=== PATIENT | female | born 1970 | race Asian ===

== ENCOUNTER 2020-10-16 15:37 | Emergency (ER) | payer OTHER ==
[~2020-10-16] VITALS: Ht 160 cm; Wt 77.1 kg
[2020-10-16 16:22] VITALS: BP 134/84; Ht 160 cm; Wt 77.1 kg
== END 2020-10-16 21:46 | disposition home or self-care (01) ==
LOC: ED 15:37
DX: F43.0 Acute stress reaction (principal); N39.0 Urinary tract infection, site not specified; Z20.828 Contact with and (suspected) exposure to other viral communicable diseases